=== PATIENT | male | born 1985 | race Caucasian/White ===

== ENCOUNTER 2016-08-23 21:15 | Emergency (ER) | payer OTHER ==
[~2016-08-23] VITALS: Ht 165.1 cm; Wt 68.4 kg
[~2016-08-23 21:15] MED LIST: MOBIC7.5 MG PO
[2016-08-23 21:17] VITALS: BP 139/78
== END 2016-08-23 23:33 | disposition left against medical advice (07) ==
LOC: RME 21:15 → EME 21:15 → RME 23:33
DX: R55 Syncope and collapse (principal); R51 Headache; Z53.21 Procedure and treatment not carried out due to patient leaving prior to being seen by health care provider